=== PATIENT | male | born 1955 ===

== ENCOUNTER 2018-06-01 10:32 | Emergency (ER) | payer OTHER ==
[~2018-06-01] VITALS: Ht 172.7 cm; Wt 111.1 kg
[2018-06-01] MEDS ORDERED: FORTAMET1000 MG (10:47)
[2018-06-01] MEDS ORDERED: NEURONTIN800 MG (10:47)
[2018-06-01] MEDS ORDERED: PRINIVIL20 MG (10:47)
[2018-06-01] MEDS ORDERED: TUSSIONEX PENN115 ML PO (11:44)
== END 2018-06-01 12:26 | disposition home or self-care (01) ==
LOC: ER 10:32
DX: R05 Cough (principal)